=== PATIENT | female | born 1960 | race Caucasian/White ===

== ENCOUNTER → 2016-12-03 | Outpatient (CLI) | payer OTHER ==
[~2016-12-03] MED LIST: ACET-1256 PO; DOXY50CA5 PEG; LEVO75TA PO; TRET0.023 TOP
--- NOTE | 2016-12-04 13:15 | MAMMOGRAPHY REPORT ---
BILATERAL DIGITAL SCREENING MAMMOGRAM TOMOSYNTHESIS WITH CAD: 12/03/2016 CLINICAL HISTORY: Routine screening. Patient has no complaints. TECHNIQUE: Breast tomosynthesis in addition to standard 2D mammography was performed. Current study was also evaluated with a Computer Aided Detection (CAD) system. COMPARISON: Comparison is made to exams dated: 11/29/2015 mammogram, 11/24/2014 mammogram, 09/24/2013 ma mmogram, 09/23/2012 mammogram, 09/19/2011 mammogram, and 09/15/2010 mammogram - [facility] nter. BREAST COMPOSITION: The tissue of both breasts is heterogeneously dense, which may obscure small ma sses. FINDINGS: No suspicious mass, architectural distortion or cluster of microcalcifications is seen. IMPRESSION: ACR BI-RADS CATEGORY 1: NEGATIVE There is no mammographic evidence of malignancy. A 1 year screening mammogram is recommended. The p atient will receive written notification of the results. Approximately 10% of breast cancers are not detected with mammography. A negative mammographic repor t should not delay biopsy if a clinically suggestive mass is present. Renetta Clark M.D. ay/:12/03/2016 21:16:59 [employer]othing [employer] Equipment Developer: Angela OCAMPO)(Patricia), [facility] letter sent: Normal 1/2 BI-RADS Code: ACR BI-RADS Category 1: Negative
== END | disposition home or self-care (01) ==
LOC: C.MAMM 07:09
PROVIDERS: ATTEND Family Medicine
DX: Z12.31 Encounter for screening mammogram for malignant neoplasm of breast (principal)

== ENCOUNTER 2016-12-05 14:54 | Emergency (ER) | payer OTHER ==
[~2016-12-05] VITALS: Ht 170.2 cm; Wt 62.6 kg
[2016-12-05 15:02] VITALS: Ht 170.2 cm; Wt 62.6 kg
[2016-12-05 16:56] LABS: BASO % 0.4 %; BASO ABS # 0.02 K/uL (0-0.2); COMPLETE YES; EOS % 0.9 %; HEMATOCRIT 39.5 % (37-47); IG% 0.2 %; LYMPH % 26.8 %; LYMPH ABS # 1.48 K/uL (1.2-3.4); MEAN CELL VOLUME 86.6 fL (80-100); MEAN CORPUSCULAR HGB CONC 34.7 g/dl (32-36); MEAN PLATELET VOLUME 8.7 fL (7.4-10.4); MONO % 5.4 %; NEUT % 66.3 %; PLATELET COUNT 214 K/uL (130-400); RED BLOOD COUNT 4.56 M/uL (4.2-5.4); WHITE BLOOD COUNT 5.52 K/uL (4.8-10.8)
[2016-12-05 17:12] LABS: URINE APPEARANCE CLEAR (CLEAR); URINE BILIRUBIN NEG (NEG); URINE COLOR YELLOW; URINE NITRITE NEG (NEG); URINE PH 6.5 (4.5-7.5); URINE SPECIFIC GRAVITY 1.009 (1.000-1.030); UROBILINOGEN NEG (NEG)
[2016-12-05 17:14] LABS: MANUAL MICROSCOPIC REQUIRED? NO; REVIEW REQ? NO
[2016-12-05 17:15] LABS: BLOOD UREA NITROGEN 16 mg/dl (7-18); CREATININE 0.83 mg/dl (0.60-1.20); GLUCOSE 82 mg/dl (70-99)
[2016-12-05 17:16] LABS: ALT/SGPT 22 U/L (12-78); AST/SGOT 8 U/L (15-37); BUN/CREATININE RATIO 18.7 (10-20); CALCIUM 9.4 mg/dl (8.5-10.1); CARBON DIOXIDE 32 mmol/L (21-32); CHLORIDE 107 mmol/L (98-107); POTASSIUM 4.1 mmol/L (3.5-5.1); SODIUM 142 mmol/L (136-145)
[2016-12-05 17:18] LABS: ALKALINE PHOSPHATASE 66 U/L (45-117)
--- NOTE | 2016-12-05 17:56 | DIAGNOSTIC IMAGING REPORT ---
PA CHEST WITH ABDOMINAL SERIES CLINICAL HISTORY: Left-sided abdominal pain. Bloating. FINDINGS: A PA chest radiograph is obtained. No prior studies are available for comparison at the time of dictation. The cardiomediastinal silhouette is unremarkable. Nonspecific interstitial thickening is noted. The lungs and pleural spaces are clear. No pneumothorax is seen. The skeletal structures are osteopenic. The bony thorax is grossly intact. Supine and erect abdominal radiographs are correlated with abdominal ultrasound dated 09/27/2015. There is a nonobstructed abdominal bowel gas pattern. Severe constipation is noted. No evidence of intraperitoneal free air is seen. There are no abnormal abdominal calcifications. The lumbosacral spine and bony pelvis appear intact. IMPRESSION: 1. No active disease in the chest. 2. Severe constipation. Electronically signed by: Daniel Connelly M.D. 12/05/2016 5:54 PM Dictated Date/Time: 12/05/2016 5:53 PM
[2016-12-05] MEDS ORDERED: MAGNESIUM CITRATE 296 ML/BTL PO STA (18:16)
[2016-12-05 18:33] VITALS: BP 120/74; PULSE 87; TEMP 36.7; O2SAT 97
--- NOTE | 2016-12-05 22:21 | EMERGENCY ROOM VISIT NOTE ---
History First contact with patient: 16:03 Chief Complaint: ABDOMINAL PAIN Stated Complaint: ABD PAIN, BLOATING Nursing Triage Summary: Patient presents with c/o abdominal pain States she wakes in the morning with mild pain that worsens throughout the day Now states pain is sharp and she feels very bloated Symptoms have been intermittent for a while but today pain is severe since 0800 History of Present Illness The patient is a 56 year old female who presents to the Emergency Room with complaints of intermittent colicky abdominal pain that has been going on for several years, but worsening over the past 2 weeks. The patient reports that it feels like a severe cramp. There is no regular daily timing to the discomfort. There does not appear to be any postprandial relation. She occasionally will have nausea, but has had no vomiting. She has had problems with constipation, and denies any diarrhea. She has noticed some mucus in her stools, and has felt bloated. Other times, she feels perfectly fine. The patient reports that she occasionally takes doxycycline for acne, and has taken doxycycline for many years. She also takes a probiotic. 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 She has not had an actual GI evaluation. She did have a normal colonoscopy in April 2015 that was performed by Dr. Downs. Family doctor also performed a gallbladder ultrasound in September 2015 that was also normal. The patient denies any fevers or chills. She currently rates her discomfort a 1 out of 10. Review of Systems HEENT: Denies dizziness, visual problems, hearing loss, tinnitus. Denies difficulty swallowing or oral lesions. PULMONARY: Denies cough, shortness of breath, sputum production or hemoptysis. CARDIOVASCULAR: Denies chest pain, palpitations, dyspnea on exertion, orthopnea or peripheral edema. GASTROINTESTINAL: See history of present illness. GENITOURINARY: Denies dysuria, frequency, urgency or nocturia. NEUROLOGIC: Denies history of epilepsy, CVA, TIA or chronic headaches. MUSCULOSKELETAL: Denies history of joint tenderness/swelling. SKIN: Denies rashes or lesions. PSYCHIATRIC: Denies history of depression or mental illness. ENDOCRINE: Denies history of diabetes or thyroid disorders. Past Medical/Surgical History Medical Problems: (1) Hyperlipidemia Nec/Nos (2) Hypothyroidism Nos (3) Internal hemorrhoids Surgical Problems: (1) History of colonoscopy (2) History of tubal ligation Family History FHx: colon cancer Social History Smoking Status: Never Smoker Alcohol Use: occasionally Marital Status: Housing Status: lives with family Occupation Status: employed Current/Historical Medications Scheduled Acetaminophen (Tylenol), 2 TAB PO Q6 Doxycycline (Monohydrate) (Doxycycline Monohydrate), 1 CAP PEG QAM Levothyroxine Sodium (Synthroid), 75 MCG PO QAM Allergies Coded Allergies: No Known Allergies (Unverified , 04/29/15) Physical Exam Vital Signs Date Time Temp Pulse Resp B/P Pulse Ox O2 Delivery O2 Flow Rate FiO2 12/05/16 18:33 36.7 87 18 120/74 97 12/05/16 17:45 87 18 120/74 97 Room Air 12/05/16 15:02 36.7 84 16 142/82 100 Room Air Physical Exam CONSTITUTIONAL: Healthy and well nourished. Alert and oriented X 3 with positive affect. She does not appear in any acute distress. HEENT: Normocephalic, atraumatic. Pupils equal, round and reactive. No scleral icterus or conjunctival injection/pallor. NECK: Full active range of motion without discomfort. RESPIRATORY: Clear to auscultation bilaterally with no wheezing, crackles, rhonchi or stridor. CARDIOVASCULAR: Regular rate and rhythm with no murmurs, rubs or gallops. GASTROINTESTINAL: Bowel sounds present in all quadrants. Patient has minimal left-sided tenderness to palpation. No hepatosplenomegaly. No rigidity, guarding or rebound. Negative McBurney's point tenderness. Negative CVA tenderness. MUSCULOSKELETAL: Full range of motion of all joints without discomfort. INTEGUMENTARY: No rash or other significant dermatologic conditions noted. HEMATOLOGIC: No ecchymosis or petechiae. NEUROLOGIC: No focal neurologic deficits noted. Medical Decision & Procedures ER Provider Diagnostic Interpretation: My interpretation of an abdomen obstruction series shows notable constipation without any obstructive pattern or subdiaphragmatic air. Radiologist report is as follows: PA CHEST WITH ABDOMINAL SERIES CLINICAL HISTORY: Left-sided abdominal pain. Bloating. FINDINGS: A PA chest radiograph is obtained. No prior studies are available for comparison at the time of dictation. The cardiomediastinal silhouette is unremarkable. Nonspecific interstitial thickening is noted. The lungs and pleural spaces are clear. No pneumothorax is seen. The skeletal structures are osteopenic. The bony thorax is grossly intact. Supine and erect abdominal radiographs are correlated with abdominal ultrasound dated 09/27/2015. There is a nonobstructed abdominal bowel gas pattern. Severe constipation is noted. No evidence of intraperitoneal free air is seen. There are no abnormal abdominal calcifications. The lumbosacral spine and bony pelvis appear intact. IMPRESSION: 1. No active disease in the chest. 2. Severe constipation. Laboratory Results 12/05/16 16:40 Red Blood Count 4.56, Mean Corpuscular Volume 86.6, Mean Corpuscular Hemoglobin 30.0, Mean Corpuscular Hemoglobin Concent 34.7, Mean Platelet Volume 8.7, Neutrophils (%) (Auto) 66.3, Lymphocytes (%) (Auto) 26.8, Monocytes (%) (Auto) 5.4, Eosinophils (%) (Auto) 0.9, Basophils (%) (Auto) 0.4, Neutrophils # (Auto) 3.66, Lymphocytes # (Auto) 1.48, Monocytes # (Auto) 0.30, Eosinophils # (Auto) 0.05, Basophils # (Auto) 0.02 12/05/16 16:40 Test 12/05/16 16:40 White Blood Count 5.52 K/uL (4.8-10.8) Red Blood Count 4.56 M/uL (4.2-5.4) Hemoglobin 13.7 g/dL (12.0-16.0) Hematocrit 39.5 % (37-47) Mean Corpuscular Volume 86.6 fL (80-100) Mean Corpuscular Hemoglobin 30.0 pg (25-34) Mean Corpuscular Hemoglobin Concent 34.7 g/dl (32-36) Platelet Count 214 K/uL (130-400) Mean Platelet Volume 8.7 fL (7.4-10.4) Neutrophils (%) (Auto) 66.3 % Lymphocytes (%) (Auto) 26.8 % Monocytes (%) (Auto) 5.4 % Eosinophils (%) (Auto) 0.9 % Basophils (%) (Auto) 0.4 % Neutrophils # (Auto) 3.66 K/uL (1.4-6.5) Lymphocytes # (Auto) 1.48 K/uL (1.2-3.4) Monocytes # (Auto) 0.30 K/uL (0.11-0.59) Eosinophils # (Auto) 0.05 K/uL (0-0.5) Basophils # (Auto) 0.02 K/uL (0-0.2) RDW Standard Deviation 39.2 fL (36.4-46.3) RDW Coefficient of Variation 12.4 % (11.5-14.5) Immature Granulocyte % (Auto) 0.2 % Immature Granulocyte # (Auto) 0.01 K/uL (0.00-0.02) Erythrocyte Sedimentation Rate 5 mm/hr (0-21) Urine Color YELLOW Urine Appearance CLEAR (CLEAR) Urine pH 6.5 (4.5-7.5) Urine Specific Lula 1.009 (1.000-1.030) Urine Protein NEG (NEG) Urine Glucose (UA) NEG (NEG) Urine Ketones NEG (NEG) Urine Occult Blood NEG (NEG) Urine Nitrite NEG (NEG) Urine Bilirubin NEG (NEG) Urine Urobilinogen NEG (NEG) Urine Leukocyte Esterase MODERATE (NEG) Urine WBC (Auto) 5-10 /hpf (0-5) Urine RBC (Auto) 0-4 /hpf (0-4) Urine Hyaline Casts (Auto) 0 /lpf (0-5) Urine Epithelial Cells (Auto) 10-20 /lpf (0-5) Urine Bacteria (Auto) NEG (NEG) Anion Gap 3.0 mmol/L (3-11) Est Creatinine Clear Calc Drug Dose 73.6 ml/min Estimated GFR () 91.4 Estimated GFR (Non- 78.8 BUN/Creatinine Ratio 18.7 (10-20) Calcium Level 9.4 mg/dl (8.5-10.1) Total Bilirubin 0.3 mg/dl (0.2-1) Direct Bilirubin < 0.1 mg/dl (0-0.2) Aspartate Amino Transf (AST/SGOT) 8 U/L (15-37) Alanine Aminotransferase (ALT/SGPT) 22 U/L (12-78) Alkaline Phosphatase 66 U/L (45-117) C-Reactive Protein < 0.29 mg/dl (0-0.29) Total Protein 7.7 gm/dl (6.4-8.2) Albumin 4.5 gm/dl (3.4-5.0) Lipase 188 U/L (73-393) The above labs were reviewed and were grossly normal. Medications Administered Medications (Trade) Dose Ordered Sig/Malachi Route Start Time Stop Time Status Last Admin Dose Admin Magnesium Citrate (Citrate Of Magnesia Soln) 296 ml ONE STAT PO 12/05/16 18:16 12/05/16 18:18 DC 12/05/16 18:33 296 ML ED Course Patient history and physical exam were performed. Nurse's notes were reviewed. Vital signs were reviewed and were normal. The patient refused any hydration , analgesics or antiemetics. Review of labs showed no acute abnormalities. An abdomen obstruction series showed severe constipation. The case was discussed with Dr. Miller, ED attending physician, who agrees with workup and plan of care. The patient was encouraged to follow[facility] with [facility] for further reevaluation and management. The patient was provided a magnesium citrate home pack. A constipation handout was also provided. She was encouraged to return for any progressively worsening pain, vomiting, rectal bleeding, fever or other concerning symptoms. The patient was happy with plan of care, and denied any significant discomfort at the time of discharge. Medical Decision Patient presents with complaint of intermittent generalized abdominal pain for several years. The pain has become more frequent lately. At this point, her laboratory studies are normal. An abdomen obstruction series showed moderate to severe constipation. At this point, I do not feel that any additional imaging studies are warranted, and will allow the patient to have a gastroenterology evaluation. It is possible that the patient has IBS with constipation. Based on history and laboratory studies, I do not suspect Crohn's , ulcerative colitis or colitis, although these differentials were considered. The patient is afebrile and without leukocytosis, nor does she have physical exam findings to suggest infection or peritonitis. Laboratory studies are not suggestive of pancreatitis, hepatitis, cholecystitis or UTI. Impression Primary Impression: Left sided abdominal pain Additional Impression: Constipation Departure Information Referrals Benedicto Soni M.D. (PCP) Patient Instructions My [facility] Problem Qualifiers Additional Impression: Constipation Constipation type: unspecified constipation type Qualified Codes: K59.00 - Constipation, unspecified
== END 2016-12-05 18:34 | disposition home or self-care (01) ==
LOC: C.EDB 14:55
DX: R10.84 Generalized abdominal pain (principal); K59.00 Constipation, unspecified; E78.5 Hyperlipidemia, unspecified; E03.9 Hypothyroidism, unspecified; Z98.51 Tubal ligation status; Z98.890 Other specified postprocedural states; Z79.899 Other long term (current) drug therapy; Z80.0 Family history of malignant neoplasm of digestive organs

== ENCOUNTER → 2017-06-04 | Outpatient (CLI) | payer OTHER ==
[~2017-06-04] MED LIST changes: -TRET0.023 TOP
[2017-06-04 09:52] LABS: BLOOD UREA NITROGEN 11 mg/dl (7-18); BUN/CREATININE RATIO 13.1 (10-20); CALCIUM 9.6 mg/dl (8.5-10.1); CARBON DIOXIDE 31 mmol/L (21-32); CHLORIDE 104 mmol/L (98-107); CREATININE 0.87 mg/dl (0.60-1.20); GLUCOSE 94 mg/dl (70-99); POTASSIUM 3.8 mmol/L (3.5-5.1); SODIUM 139 mmol/L (136-145)
[2017-06-04 10:04] LABS: CHOLESTEROL 230 mg/dl (0-200); CHOLESTEROL/HDL RATIO 3.1; HDL CHOLESTEROL 74 mg/dl; LDL CHOLESTEROL CALCULATED 137 mg/dl; TRIGLYCERIDES 96 mg/dl (0-150); VERY LOW DENSITY LIPOPROT CALC 19 mg/dl
== END | disposition home or self-care (01) ==
LOC: C.LAB 07:04
PROVIDERS: ATTEND Family Medicine
DX: Z11.59 Encounter for screening for other viral diseases (principal); E78.5 Hyperlipidemia, unspecified; E03.9 Hypothyroidism, unspecified

== ENCOUNTER → 2017-12-05 | Outpatient (CLI) | payer OTHER ==
--- NOTE | 2017-12-05 15:33 | MAMMOGRAPHY REPORT ---
BILATERAL DIGITAL SCREENING MAMMOGRAM TOMOSYNTHESIS WITH CAD: 12/05/2017 CLINICAL HISTORY: Routine screening. TECHNIQUE: Breast tomosynthesis in addition to standard 2D mammography was performed. Current study was also evaluated with a Computer Aided Detection (CAD) system. COMPARISON: Comparison is made to exams dated: 12/03/2016 mammogram, 11/29/2015 mammogram, 11/24/2014 ma mmogram, 09/24/2013 mammogram, 09/23/2012 mammogram, and 09/19/2011 mammogram - [facility] er. BREAST COMPOSITION: The tissue of both breasts is heterogeneously dense, which may obscure small mas ses. FINDINGS: No suspicious masses, calcifications, or areas of architectural distortion are noted in ei ther breast. There has been no significant interval change compared to prior exams. IMPRESSION: ACR BI-RADS CATEGORY 1: NEGATIVE There is no mammographic evidence of malignancy. A 1 year screening mammogram is recommended. The pa tient will receive written notification of the results. Approximately 10% of breast cancers are not detected with mammography. A negative mammographic report should not delay biopsy if a clinically suggestive mass is present. Carol Dominguez M.D. ah/:12/05/2017 07:57:00 Rn Anesthesiology: Nabil PEDERSEN(Pepe)(M), [facility] letter sent: Normal 1/2 BI-RADS Code: ACR BI-RADS Category 1: Negative
== END | disposition home or self-care (01) ==
LOC: C.MAMM 07:26
PROVIDERS: ATTEND Internal Medicine
DX: Z12.31 Encounter for screening mammogram for malignant neoplasm of breast (principal)

== ENCOUNTER → 2018-03-14 | Outpatient (CLI) | payer OTHER ==
[2018-03-14 10:23] LABS: BLOOD UREA NITROGEN 21 mg/dl (7-18); CREATININE 0.94 mg/dl (0.60-1.20); GLUCOSE 81 mg/dl (70-99)
[2018-03-14 10:24] LABS: CALCIUM 9.8 mg/dl (8.5-10.1); CARBON DIOXIDE 26 mmol/L (21-32); CHOLESTEROL 217 mg/dl (0-200); LDL CHOLESTEROL CALCULATED 126 mg/dl; POTASSIUM 3.9 mmol/L (3.5-5.1); SODIUM 138 mmol/L (136-145)
== END | disposition home or self-care (01) ==
LOC: C.LAB 07:29
PROVIDERS: ATTEND Internal Medicine
DX: Z00.00 Encounter for general adult medical examination without abnormal findings (principal); E03.9 Hypothyroidism, unspecified